=== PATIENT | female | born 1955 | race Caucasian/White ===

== ENCOUNTER 2019-07-19 09:34 | Emergency (ER) | payer OTHER ==
[~2019-07-19] VITALS: Ht 160 cm; Wt 54.1 kg
--- NOTE | 2019-07-19 10:27 | NUR ---
PT SENT BY DENTIST OFFICE FOR HIGH BP. C/O SHAKING AND SWEATING INTERMITTENTLY FOR THE PAST WEEK OR SO, AND A TRANSIENT HEADACHE THROUGH TEMPLES AND CHEEKS. DENIES ANY OTHER NEEDS OR CONCERNS. ATTACHED TO MONITORS. BP 194/108 IN ROOM. GIVEN WARM BLANKETS, CALL LIGHT IN REACH.
[2019-07-19 11:26] LABS: BASOPHILS # (AUTO) 0.04 x10^3/uL (0-0.1); BASOPHILS % (AUTO) 1 % (0-1); EOSINOPHILS # (AUTO) 0.01 x10^3/uL (0-0.4); EOSINOPHILS % (AUTO) 0 % (1-7); LYMPHOCYTES # (AUTO) 1.16 x10^3/uL (1-3.4); LYMPHOCYTES % (AUTO) 17 % (22-44); MD NO; MEAN CORPUSCULAR HEMOGLOBIN 30.7 pg (27.0-34.8); MEAN CORPUSCULAR HGB CONC 33.3 g/dL (32.4-35.8); MEAN CORPUSCULAR VOLUME 92.2 fL (80-100); MONOCYTES # (AUTO) 0.28 x10^3/uL (0.2-0.8); MONOCYTES % (AUTO) 4 % (2-9); NEUTROPHILS # (AUTO) 5.23 x10^3/uL (1.8-6.8); NEUTROPHILS % (AUTO) 78 % (42-75); PLATELET COUNT 156 x10^3/uL (130-400); RED BLOOD COUNT 4.92 x10^6/uL (3.82-5.3); RED CELL DISTRIBUTION WIDTH 13.8 % (9.6-15.2)
--- NOTE | 2019-07-19 11:34 | NUR ---
PT UP TO RESTROOM TO PROVIDE URINE SAMPLE.
[2019-07-19 11:37] LABS: ALANINE AMINOTRANSFERASE 21 U/L (12-78); ALBUMIN 4.4 g/dL (3.4-5.0); ANION GAP 6 mmol/L (5-15); CALCIUM 9.3 mg/dL (8.5-10.1); CHLORIDE 114 mmol/L (98-107); CREATININE 0.76 mg/dL (0.55-1.02)
[2019-07-19 11:41] LABS: ALKALINE PHOSPHATASE 64 U/L (45-117); BILIRUBIN,TOTAL 0.8 mg/dL (0.2-1.0); TOTAL PROTEIN 7.5 g/dL (6.4-8.2); TROPONIN I < 0.015 ng/mL (0.000-0.045)
[2019-07-19 11:54] LABS: MICROSCOPIC AUTO
[2019-07-19 11:57] LABS: CULTURE INDICATED? YES
--- NOTE | 2019-07-19 13:24 | NUR ---
BREAK RN: Discharge instructions discussed with patient including when to return to emergency department, verbalizes understanding. Prescriptions provided with instruction for use, patient instructed not to drive while taking xanax, verbalizes understanding. Patient ambulates with steady gait accompanied by her .
[2019-07-19 13:25] VITALS: BP 110/62
== END 2019-07-19 13:27 | disposition home or self-care (01) ==
LOC: ED 11:51
DX: I10 Essential (primary) hypertension (principal); N30.00 Acute cystitis without hematuria
CPT/HCPCS: 36415; 71045; 80053; 81001; 84484; 85025; 87086; 93005; 99284